=== PATIENT | female | born 1940 | race Two or more races ===

== ENCOUNTER 2018-02-23 09:19 | Outpatient (CLI) | payer OTHER ==
[~2018-02-23 09:19] MED LIST: CLONAZEPAM1 MG PO; INTESTINEX680 MG PO; MELATONINA PO; RESTORIL30 M1 PO; TRAM1TAB98 PO
== END 2018-02-23 10:21 | disposition home or self-care (01) ==
LOC: NUCLEAR 09:19
DX: L03.115 Cellulitis of right lower limb (principal); L03.114 Cellulitis of left upper limb; I87.2 Venous insufficiency (chronic) (peripheral)

== ENCOUNTER 2018-07-30 15:30 | Outpatient (CLI) | payer OTHER | END 2018-07-30 15:32 | disposition home or self-care (01) | LOC: RAD 15:30 | DX: M25.561 Pain in right knee (principal); M25.562 Pain in left knee ==

== ENCOUNTER 2018-12-13 15:02 | Outpatient (CLI) | payer OTHER | END 2018-12-13 15:03 | disposition home or self-care (01) | LOC: TOM 15:02 | DX: G47.33 Obstructive sleep apnea (adult) (pediatric) (principal); R91.1 Solitary pulmonary nodule ==

== ENCOUNTER 2019-08-26 08:06 | Outpatient (CLI) | payer OTHER | END 2019-08-26 15:00 | disposition home or self-care (01) | LOC: RAD 08:06 → LAB 08:06 | PROVIDERS: ATTEND Urology | DX: N20.1 Calculus of ureter (principal) ==

== ENCOUNTER 2019-10-09 07:31 | Outpatient (CLI) | payer OTHER | END 2019-10-09 07:56 | disposition home or self-care (01) | LOC: NUCLEAR 07:31 | PROVIDERS: ATTEND Internal Medicine | DX: I50.20 Unspecified systolic (congestive) heart failure (principal); E03.8 Other specified hypothyroidism | CPT/HCPCS: 78452; 93017; A9500; J0153 ==

== ENCOUNTER 2019-10-16 14:40 | Emergency (ER) | payer OTHER ==
[~2019-10-16] VITALS: Ht 160 cm; Wt 72.6 kg
[2019-10-16] MEDS ORDERED: SYNTHROID50 MCG PO (14:57)
[2019-10-16] MEDS ORDERED: PREVACID15 MG PO (14:57)
[2019-10-16] MEDS ORDERED: REMINYL4 MG PO (14:58)
== END 2019-10-16 18:18 | disposition home or self-care (01) ==
LOC: ER 14:40
DX: R10.11 Right upper quadrant pain (principal); R10.12 Left upper quadrant pain

== ENCOUNTER 2019-11-12 11:32 | Outpatient (CLI) | payer OTHER ==
[~2019-11-12 11:32] MED LIST changes: +PREVACID15 MG PO; +REMINYL4 MG PO; +SYNTHROID50 MCG PO
== END 2019-11-12 11:46 | disposition home or self-care (01) ==
LOC: TOM 11:32
PROVIDERS: ATTEND Internal Medicine Cardiovascular Disease
DX: R10.84 Generalized abdominal pain (principal)